=== PATIENT | male | born 1960 ===

== ENCOUNTER 2017-01-21 16:02 | Emergency (ER) | payer SELFPAY ==
[~2017-01-21] VITALS: Ht 177.8 cm; Wt 90.7 kg
[2017-01-21] MEDS ORDERED: SODIUM CHLORIDE 0.9% 1,000 ML IVB ONE (16:54)
[2017-01-21 16:57] LABS: Urine RBC None Seen /hpf (0 - 3)
[2017-01-21 17:30] LABS: Urine Bilirubin Negative (Negative); Urine Blood Negative /uL (Negative); Urine Color Yellow (Yellow); Urine Glucose Normal (Normal); Urine Ketone Negative (Negative); Urine Nitrite Negative (Negative); Urine Urobilinogen Normal (Negative); Urine pH 5.5 (5.0-8.0)
[2017-01-21] MEDS ORDERED: SODIUM CHLORIDE 0.9% 1,000 ML IV ONE (18:55)
[2017-01-21 22:03] VITALS: BP 145/72
== END 2017-01-21 22:07 | disposition home or self-care (01) ==
LOC: EDBD 16:02 → ER 16:10
DX: F10.120 Alcohol abuse with intoxication, uncomplicated (principal); R51 Headache
CPT/HCPCS: 36415; 80320; 81001; 96360; 99284; J7030

== ENCOUNTER 2017-01-29 00:05 | Emergency (ER) | payer SELFPAY ==
[~2017-01-29] VITALS: Ht 180.3 cm; Wt 81.6 kg
[2017-01-29 01:02] LABS: Basophils # (auto) 0 uL; Basophils % (auto) 0.3 % (0.0-2.0); CONDITION Y; Eosinophils # (auto) 0 uL; Eosinophils % (auto) 0.5 % (0.0-7.0); Hematocrit 35.3 % (41.0-53.0); Hemoglobin 11.9 g/dL (13.5-17.5); Lymphocytes # (auto) 1.8 uL; Lymphocytes % (auto) 33.7 % (10.0-50.0); Mean Corpuscular Hgb Conc. 33.6 g/dL (32.0-36.0); Mean Corpuscular Volume 98.1 fL (80.0-100.0); Mean Platelet Volume 6.6 fL (7.4-10.4); Monocytes # (auto) 0.6 uL; Monocytes % (auto) 11.3 % (0.0-12.0); Neutrophils # (auto) 2.9 uL; Neutrophils % (auto) 54.2 % (37.0-80.0); Platelet Count (auto) 213 10^3/uL (140-450); Red Cell Distribution Width 18.7 % (11.6-16.0); SUSPECT SEE PRINTOUT; White Blood Cell 5.3 10^3/uL (4.4-10.8)
[2017-01-29 01:10] LABS: Albumin 3.6 g/dL (3.4-5.0); BUN/Creatinine Ratio 14.9; Calcium 7.9 mg/dL (8.5-10.1); Potassium 3.4 mmol/L (3.5-5.1)
[2017-01-29 01:13] LABS: Bilirubin, Total 0.7 mg/dL (0.2-1.0); Total Protein 7.4 g/dL (6.4-8.2)
[2017-01-29 04:10] LABS: Urine Bilirubin Negative (Negative); Urine Blood Negative /uL (Negative); Urine Color Yellow (Yellow); Urine Glucose Normal (Normal); Urine Ketone Negative (Negative); Urine Mucus FEW (None Seen); Urine Nitrite Negative (Negative); Urine RBC 1 /hpf (0 - 3); Urine Squamous Epithelial Cell FEW /hpf (<5); Urine Urobilinogen Normal (Negative)
[2017-01-29] MEDS ORDERED: SODIUM CHLORIDE 0.9% 1,000 ML IV ONE (07:02)
[2017-01-29] MEDS ORDERED: METOCLOPRAMIDE HCL 5MG/ml INJ 2ml VIAL IV ONE (07:15)
[2017-01-29] MEDS ORDERED: POTASSIUM CHL 20 Meq TABLET PO ONE (07:15)
[2017-01-29] MEDS ORDERED: KETOROLAC TROMETH 30 MG/ML 1ML VIAL IV ONE (07:15)
[2017-01-29 08:35] VITALS: BP 136/87
== END 2017-01-29 08:40 | disposition home or self-care (01) ==
LOC: EDUNIT# 00:05 → EDBD 00:05 → ER 00:09
DX: G89.29 Other chronic pain (principal); M54.2 Cervicalgia; G44.209 Tension-type headache, unspecified, not intractable; F10.120 Alcohol abuse with intoxication, uncomplicated; E87.6 Hypokalemia
CPT/HCPCS: 36415; 70450; 80053; 80307; 81001; 85025; 96361; 96374; 96375; 99285; J1885; J2765